=== PATIENT | male | born 1975 | race Two or more races ===

== ENCOUNTER 2023-06-19 13:23 | Inpatient (IN) | payer OTHER ==
[~2023-06-19] VITALS: Ht 170.2 cm; Wt 98.0 kg
[2023-06-19] MEDS ORDERED: HYDROmorphone HCL 2 MG/ML VL/or syr IV ONE ×2 (14:45→18:00)
[2023-06-19] MEDS ORDERED: PIPERACILLIN-TAZOB 3.375GM 100 ML IV ONE (16:30)
[2023-06-19] MEDS ORDERED: cefTRIAXone 2GM/50ML D5W 50 ML IV ONE ×2 (16:30→18:00)
[2023-06-19] MEDS ORDERED: LIDOCAINE 2%HCL (LOCAL ANESTH.) INJ 10ml MDV ONE (16:32)
[2023-06-19] MEDS ORDERED: BUPIVACAINE 0.5% P/F INJ 10 ML VIAL ONE (16:32)
[2023-06-19] MEDS ORDERED: EPINEPHrine HCL 1 MG/1 ML AMP ONE (16:33)
[2023-06-19] MEDS ORDERED: BUPIVACAINE 0.25% INJ 50ML VIAL ONE (16:33)
[2023-06-19] MEDS ORDERED: DexAMETHasone SOD PHOS 4 MG/1ML SDV INJ ONE (16:33)
[2023-06-19] MEDS ORDERED: LIDOCAINE 2% (LOCAL ANESTH.) PF 5ml SDV ONE (16:39)
[2023-06-19] MEDS ORDERED: ONDANSETRON HCL 4 MG/2 ML VIAL ONE (16:39)
[2023-06-19] MEDS ORDERED: DexAMETHasone SOD PHOS 10MG/1ML VIAL INJ ONE (16:39)
[2023-06-19] MEDS ORDERED: KETOROLAC TROMETH 30 MG/ML 1ML VIAL ONE (16:39)
[2023-06-19] MEDS ORDERED: ceFAZolin 1GM/50ML 100 ML IV ONE (16:51)
[2023-06-19] MEDS ORDERED: PROPOFOL 10 MG/ML 20 ML IV ONE (17:22)
[2023-06-19] MEDS ORDERED: ceFAZolin 1GM VL ONE (17:35)
[2023-06-19] MEDS: POVIDONE IODINE 10 % TOPICAL OINT 30GM TOP ONE (17:50)
[2023-06-19 17:54] LABS: Basophils # (auto) 0 10 ^3/uL (0-0.2); Basophils % (auto) 0.5 % (0.0-2.0); Eosinophils # (auto) 0 10 ^3/uL (0-0.8); Eosinophils % (auto) 0.4 % (0.0-7.0); Hematocrit 43.9 % (41.0-53.0); Hemoglobin 14.7 g/dL (13.5-17.5); Lymphocytes # (auto) 1.8 10 ^3/uL (0.4-5.4); Lymphocytes % (auto) 19.6 % (10.0-50.0); Mean Corpuscular Hemoglobin 27.5 pg (28.0-32.0); Mean Corpuscular Hgb Conc. 33.4 g/dL (32.0-36.0); Mean Corpuscular Volume 82.1 fL (80.0-100.0); Monocytes # (auto) 0.5 10 ^3/uL (0-1.3); Neutrophils # (auto) 6.9 10 ^3/uL (1.6-8.6); Neutrophils % (auto) 74.5 % (37.0-80.0); Nucleated Red Blood Cells % 0.1 %; Red Blood Cells 5.35 10^6/uL (4.5-5.90); Red Cell Distribution Width 13.9 % (11.8-14.3); White Blood Cell 9.3 10^3/uL (4.4-10.8)
[2023-06-19 17:58] VITALS: PULSE 73; RESP 16; O2SAT 99
[2023-06-19] MEDS ORDERED: ONDANSETRON HCL 4 MG/2 ML VIAL IV PRN (18:00)
[2023-06-19] MEDS ORDERED: ACETAMINOPHEN 325 MG TAB PO PRN (18:00)
[2023-06-19] MEDS ORDERED: DOCUSATE SOD 100 MG CAP PO PRN (18:00)
[2023-06-19] MEDS ORDERED: ACETAMINOPHEN/CODEINE#3 (300/30mg) TAB PO ONE (18:00)
[2023-06-19] MEDS ORDERED: HYDROcodone-ACET 5/325MG TAB PO PRN (18:00)
[2023-06-19] MEDS ORDERED: MORPHINE SULFATE INJ 2 MG/ml SYRG IV PRN (18:00)
[2023-06-19 18:01] LABS: Alanine Aminotransferase 51 U/L (7-40); Albumin 4.7 g/dL (3.2-4.8); Alkaline Phosphatase 65 U/L (46-116); Anion Gap 9 (5-15); Aspartate Aminotransferase 40 U/L (13-40); Bilirubin, Total 0.6 mg/dL (0.2-1.0); Blood Urea Nitrogen 12 mg/dL (9-23); Calcium 9.5 mg/dL (8.5-10.1); Carbon Dioxide 24 mmol/L (20-30); Chloride 108 mmol/L (98-107); Glucose 105 mg/dL (74-106); Sodium 141 mmol/L (136-145); Total Protein 7.1 g/dL (5.7-8.2)
[2023-06-19 18:07] LABS: INR 0.97 (0.9-1.15); Prothrombin Time 10.2 sec (9.3-11.8)
[2023-06-19 21:07] VITALS: BP 130/73; PULSE 78; RESP 17; TEMP 97.8; O2SAT 96
[2023-06-19 21:56] VITALS: BP 130/73; PULSE 78; RESP 17; TEMP 97.8; O2SAT 96
[2023-06-20 05:00] VITALS: BP 127/73; PULSE 64; RESP 17; TEMP 97.7; O2SAT 97
[2023-06-20 05:39] LABS: Basophils # (auto) 0 10 ^3/uL (0-0.2); Basophils % (auto) 0.1 % (0.0-2.0); Eosinophils # (auto) 0 10 ^3/uL (0-0.8); Hemoglobin 14.4 g/dL (13.5-17.5); Lymphocytes # (auto) 1.1 10 ^3/uL (0.4-5.4); Lymphocytes % (auto) 10.7 % (10.0-50.0); Mean Corpuscular Hemoglobin 27.8 pg (28.0-32.0); Mean Corpuscular Hgb Conc. 34.3 g/dL (32.0-36.0); Mean Corpuscular Volume 81.3 fL (80.0-100.0); Monocytes # (auto) 0.1 10 ^3/uL (0-1.3); Monocytes % (auto) 1.1 % (0.0-12.0); Neutrophils % (auto) 88.1 % (37.0-80.0); Red Blood Cells 5.16 10^6/uL (4.5-5.90); Red Cell Distribution Width 13.8 % (11.8-14.3); White Blood Cell 10.2 10^3/uL (4.4-10.8)
[2023-06-20 06:07] LABS: Alanine Aminotransferase 41 U/L (7-40); Albumin 4.2 g/dL (3.2-4.8); Alkaline Phosphatase 57 U/L (46-116); Anion Gap 8 (5-15); Aspartate Aminotransferase 33 U/L (13-40); BUN/Creatinine Ratio 11.5 (10.0-20.0); Blood Urea Nitrogen 11 mg/dL (9-23); Calcium 9.3 mg/dL (8.5-10.1); Carbon Dioxide 23 mmol/L (20-30); Chloride 107 mmol/L (98-107); Glucose 130 mg/dL (74-106); Sodium 138 mmol/L (136-145)
[2023-06-20 06:08] LABS: Bilirubin, Total 0.9 mg/dL (0.2-1.0); Total Protein 6.4 g/dL (5.7-8.2)
[2023-06-20 08:00] VITALS: PULSE 71; RESP 18; O2SAT 95
[2023-06-20 09:00] VITALS: BP 133/70; PULSE 71; RESP 20; TEMP 97.8; O2SAT 95
[2023-06-20] MEDS: cefTRIAXone 1GM/50ML D5W 50 ML IV SCH (10:52)
[2023-06-20 13:00] VITALS: BP 129/72; PULSE 69; RESP 20; TEMP 98.2; O2SAT 97
[2023-06-20] MEDS ORDERED: HYDR-4902 PO (13:01)
[2023-06-20] MEDS ORDERED: CLIN300C70 PO (13:01)
[2023-06-20 15:08] VITALS: TEMP 36.8
[2023-06-20] MEDS: TETANUS-DIPTH-ACEL PERTUSSIS 0.5ML SYR Tdap IM ONE (16:42)
== END 2023-06-20 17:05 | disposition home or self-care (01) | DRG 909 ==
LOC: ER 13:23 → OVERFLOW 17:56 → EAST 20:54
PROVIDERS: ADMIT Nurse Practitioner Family; ATTEND Family Medicine
PROC: 0Y6V0Z3 Detachment at Right 4th Toe, Low, Open Approach (ICD-10-PCS; principal; 2023-06-19 17:12)
DX: S68.614A Complete traumatic transphalangeal amputation of right ring finger, initial encounter (principal); Z89.021 Acquired absence of right finger(s); X58.XXXA Exposure to other specified factors, initial encounter; Y93.89 Activity, other specified; Y92.89 Other specified places as the place of occurrence of the external cause; Y99.8 Other external cause status
CPT/HCPCS: 36415; 73130; 80053; 85025; 85610; 86850; 86900; 86901; 90715; G0378; J0171; J0690; J1100; J1885; J2001; J2405; J2704; J3490